=== PATIENT | male | born 1980 | race Caucasian/White ===

== ENCOUNTER → 2025-01-13 | Day surgery (SDC) | payer BC ==
[~2025-01-13] MED LIST: LAMICTAL100 MG PO; LIDOCAINE HCL 2% LOCAL INJ 5 ML SDV VIAL INJ ONE; MIDAZOLAM HCL 2 MG/2 ML VIAL ONE; PROPOFOL IV EMULSION 10 MG/ML 20 ML VIAL ONE
[2025-01-13] MEDS: LACTATED RINGER'S 1,000 ML ONE (11:42)
[2025-01-13 13:24] VITALS: TEMP 97.2
[2025-01-13 13:45] VITALS: BP 128/73; PULSE 84; RESP 18; O2SAT 100
== END | disposition home or self-care (01) ==
LOC: OR 08:37
PROVIDERS: ATTEND Internal Medicine Gastroenterology
DX: Z12.11 Encounter for screening for malignant neoplasm of colon (principal); D12.4 Benign neoplasm of descending colon; K64.8 Other hemorrhoids; F31.9 Bipolar disorder, unspecified; Z79.899 Other long term (current) drug therapy; Z68.30 Body mass index [BMI] 30.0-30.9, adult
CPT/HCPCS: 45385; 93005; J2003; J2704; J7121; 45378; J2250